=== PATIENT | male | born 1950 | race Two or more races ===

== ENCOUNTER 2018-07-06 22:43 | Inpatient (IN) | payer MEDICAID ==
[~2018-07-06] VITALS: Ht 165.1 cm; Wt 71.7 kg
[2018-07-06] MEDS ORDERED: AZITHROMYCIN 500 MG in DEXT 5% WATER 250 ML IV ONE (23:15)
[2018-07-06] MEDS ORDERED: METHYLPREDNISOLONE SOD SUCC 125 MG/2 ML VIAL IV STA (23:15)
[2018-07-06] MEDS ORDERED: CEFTRIAXONE 1 G PREMIX 50 ML IV ONE (23:15)
[2018-07-06] MEDS ORDERED: ACETAMINOPHEN 325MG TABLET PO STA (23:15)
[2018-07-06] MEDS ORDERED: IPRATROPIUM BROMIDE (0.02%) 0.5MG/2.5ML NEB HHN STA (23:15)
[2018-07-07] MEDS: ALBUTEROL (0.083%) 2.5MG/3ML NEB HHN SCH ×3 (00:05→01:05)
[2018-07-07 00:06] LABS: BASOPHILS % 0.4 % (0.0-2.0); EOSINOPHILS % 2.4 % (0.0-5.0); HEMOGLOBIN. 15.6 g/dL (14.0-18.0); LYMPHOCYTES % 25.9 % (20.0-50.0); MEAN CORPUSCULAR HEMOGLOBIN 30.9 pg (28.0-32.0); MEAN CORPUSCULAR VOLUME 89.3 fL (80.0-94.0); MEAN PLATELET VOLUME 8.5 fl (7.4-10.4); NEUTROPHILS % 57.3 % (40.0-76.0); PLATELET 187 x1000/uL (130-400); RED BLOOD CELL COUNT 5.04 mill/uL (4.7-6.1); RED CELL DISTRIBUTION WIDTH 15.1 % (11.6-14.6)
[2018-07-07 00:20] LABS: CHLORIDE 106 mEq/L (98-107)
[2018-07-07] MEDS ORDERED: SODIUM CHLORIDE 0.9% 1,000 ML IV ONE (01:34)
[2018-07-07] MEDS ORDERED: MORPHINE SULFATE 4 MG/ML CPJ (NOT FOR IM USE) IV ONE (01:45)
[2018-07-07] MEDS ORDERED: ONDANSETRON HCL 4MG/2ML INJ IV ONE (01:45)
[2018-07-07] MEDS ORDERED: IOHEXOL-300 100 ML BOTTLE ONE (04:25)
[2018-07-07] MEDS ORDERED: GUAIFENESIN-DM 200MG-20MG/10ML UDC PO PRN (11:15)
[2018-07-07] MEDS ORDERED: IPRATROPIUM/ALBUTEROL 0.5-3(2.5)MG/3ML NEB HHN PRN (11:15)
[2018-07-07] MEDS ORDERED: ONDANSETRON HCL 4MG/2ML INJ IV PRN (11:15)
[2018-07-07] MEDS ORDERED: ACETAMINOPHEN 325MG TABLET PO PRN (11:15)
[2018-07-07] MEDS ORDERED: AMLO10TA4 PO (11:18)
[2018-07-07] MEDS ORDERED: ATOR40TA70 PO (11:18)
[2018-07-07] MEDS ORDERED: FLUT12AE5 IH (11:18)
[2018-07-07] MEDS ORDERED: ENAL10TA PO (11:18)
[2018-07-07] MEDS ORDERED: METO-396 PO (11:18)
[2018-07-07] MEDS ORDERED: ASPI-1158 PO (11:18)
[2018-07-07 11:20] VITALS: BP 190/98
[2018-07-07 11:21] VITALS: BP 190/98
[2018-07-07] MEDS ORDERED: CLONIDINE 0.1MG TABLET PO PRN (11:30)
[2018-07-07] MEDS: OSELTAMIVIR 75MG CAPSULE PO SCH ×2 (11:58→21:00)
[2018-07-07] MEDS: METOPROLOL TARTRATE 25MG TABLET PO SCH ×2 (11:58→21:00)
[2018-07-07] MEDS: AMLODIPINE 5MG TABLET PO SCH ×2 (11:58→21:00)
[2018-07-07] MEDS: ENALAPRIL 5MG TABLET PO SCH ×2 (11:58→21:00)
[2018-07-07] MEDS: IPRATROPIUM/ALBUTEROL 0.5-3(2.5)MG/3ML NEB HHN SCH ×2 (12:42→21:56)
[2018-07-07] MEDS: METHYLPREDNISOLONE SOD SUCC 40 MG/ML VIAL IV SCH ×2 (15:49→22:00)
[2018-07-07] MEDS: NICOTINE 14MG PATCH TD SCH (15:49)
[2018-07-07] MEDS ORDERED: IOHEXOL-350 100 ML BOTTLE ONE (16:51)
[2018-07-07 16:57] VITALS: BP 141/75
[2018-07-07 20:00] VITALS: BP 164/63
[2018-07-07] MEDS: GUAIFENESIN 600MG ER TABLET PO SCH (21:00)
[2018-07-07] MEDS ORDERED: ATORVASTATIN CALCIUM 40MG TABLET PO SCH (21:00)
[2018-07-08] VITALS: BP 149/73
[2018-07-08] MEDS: IPRATROPIUM/ALBUTEROL 0.5-3(2.5)MG/3ML NEB HHN SCH ×2 (03:02→09:41)
[2018-07-08 04:00] VITALS: BP 129/66
[2018-07-08] MEDS: METHYLPREDNISOLONE SOD SUCC 40 MG/ML VIAL IV SCH ×2 (05:44→14:00)
[2018-07-08 07:10] LABS: HEMATOCRIT. 46.9 % (42.0-52.0); HEMOGLOBIN. 15.7 g/dL (14.0-18.0); MEAN CORPUSCULAR HEMOGLOBIN 30.2 pg (28.0-32.0); MEAN CORPUSCULAR VOLUME 90.7 fL (80.0-94.0); MEAN PLATELET VOLUME 10.1 fl (7.4-10.4); PLATELET 87 x1000/uL (130-400); RED BLOOD CELL COUNT 5.18 mill/uL (4.7-6.1); RED CELL DISTRIBUTION WIDTH 15.5 % (11.6-14.6)
[2018-07-08 07:30] LABS: CHLORIDE 101 mEq/L (98-107)
[2018-07-08 08:00] VITALS: BP 149/82
[2018-07-08] MEDS: GUAIFENESIN 600MG ER TABLET PO SCH (10:06)
[2018-07-08] MEDS: METOPROLOL TARTRATE 25MG TABLET PO SCH (10:06)
[2018-07-08] MEDS: ENALAPRIL 5MG TABLET PO SCH (10:07)
[2018-07-08] MEDS: NICOTINE 14MG PATCH TD SCH (10:07)
[2018-07-08] MEDS: AMLODIPINE 5MG TABLET PO SCH (10:07)
[2018-07-08] MEDS: OSELTAMIVIR 75MG CAPSULE PO SCH (10:07)
[2018-07-08 11:05] LABS: PLATELET ESTIMATE DECREASED
[2018-07-08 12:00] VITALS: BP 111/72
[2018-07-08 14:45] VITALS: BP 111/72
[2018-07-08 16:00] VITALS: BP 152/66
== END 2018-07-08 15:25 | disposition home or self-care (01) | DRG 140 ==
LOC: ER 22:43 → EDBD 07-07 01:41 → 6WST 07-07 01:41 → EDBEDREQ 07-07 01:45 → ENRESERV 07-07 07:13
PROVIDERS: ADMIT Internal Medicine; ATTEND Internal Medicine
DX: J44.1 Chronic obstructive pulmonary disease with (acute) exacerbation (principal); J96.00 Acute respiratory failure, unspecified whether with hypoxia or hypercapnia; E78.5 Hyperlipidemia, unspecified; F17.210 Nicotine dependence, cigarettes, uncomplicated; I10 Essential (primary) hypertension; I25.10 Atherosclerotic heart disease of native coronary artery without angina pectoris; Z95.5 Presence of coronary angioplasty implant and graft; Z96.643 Presence of artificial hip joint, bilateral
CPT/HCPCS: 36415; 71045; 71275; 74177; 80048; 83605; 83880; 84145; 84484; 87804; 93005; 93970; 94640; 96365; 96366; 96368; 96375; 99291; J0456; J0696; J2270; J2405; J2920; J2930; J7030; J7060; J7611; J7620; Q9967